=== PATIENT | male | born 1990 | race Caucasian/White ===

== ENCOUNTER → 2020-09-15 12:28 | Outpatient (CLI) | payer OTHER, SELFPAY ==
--- NOTE | 2020-09-15 | DI.RAD.S_ITS ---
PROCEDURE: FL SHOULDER INJECTION MR/CT LT INDICATIONS: PAIN IN LEFT SHOULDER COMPARISON: None. TECHNIQUE: The indications, alternatives, benefits, risks, and complications of the procedure were explained to the patient. Written informed consent was obtained and placed in the chart. The shoulder was examined fluoroscopically and a site for needle placement chosen for entry into the glenohumeral joint from an anterior approach. The skin was prepped and draped in a sterile fashion, and 1% lidocaine infiltrated from skin down to joint capsule. A spinal needle was inserted into the glenohumeral joint, and a small amount of iodinated contrast media injected to confirm intra-articular placement of the needle tip. This was followed by approximately 12 mL dilute solution of a gadolinium containing MR contrast agent. The needle was removed and a dressing was applied. The patient was given postprocedural instructions and sent to the MR suite for MR imaging. FINDINGS: A single fluoroscopic spot image demonstrates intra-articular location of injected iodinated contrast. IMPRESSION: Successful fluoroscopically guided administration of dilute Gadolinium solution into the shoulder joint for MR arthrogram. Dictated by: Jan Jernigan M.D. on 09/15/2020 at 13:38 Approved by: Jan Jernigan M.D. on 09/15/2020 at 13:38
--- NOTE | 2020-09-15 | DI.MRI.S_ITS ---
PROCEDURE: MR SHOULDER LT W CON INDICATIONS: PAIN IN LEFT SHOULDER TECHNIQUE: After the administration of 12 mL of dilute intra-articular Gadolinium contrast, oblique coronal T1 and T2 spin echo with fat saturation, oblique sagittal T1 spin echo with and without fat saturation, oblique sagittal T2 fast spin echo with fat saturation, axial T1 spin echo with fat saturation through the shoulder. COMPARISON: None. FINDINGS: Image quality: Excellent. Rotator cuff: There is a small, bursal surface, low-grade, partial tear of the anterior margin of the supraspinatus tendon at the humeral insertion (series 6, image 9; series 9, image 19) The infraspinatus, and subscapularis tendons appear intact throughout. No rotator cuff muscle atrophy on sagittal images. Bones and bursae: No bone marrow contusions or fractures. Moderate acromioclavicular joint osteoarthritic degeneration. The acromion is downsloping. No os acromiale. Fluid is noted in the subacromial/subdeltoid bursa compatible with moderate bursitis. Capsule and soft tissues: The labrum and glenohumeral ligaments appear intact. The long head of the biceps tendon demonstrates normal location and morphology. The rotator interval appears normal, without fibrosis. The coracohumeral ligament is of normal thickness. The coracoacromial ligament is thickened and is causing contouring of the anterior margin of the supraspinatus tendon (series 9, images 9-11). No intra-articular bodies. IMPRESSION: 1. Small, low-grade, partial bursal surface tear of the anterior margin of the supraspinatus tendon at the humeral surgeon. 2. Thickened coracoacromial ligament possibly causing impingement. Please correlate with clinical data. 3. Moderate acromioclavicular joint osteoarthritis. 4. Moderate subacromial/subdeltoid bursitis. 5. No labral tear. Dictated by: Maryan Becerra MD, PhD on 09/15/2020 at 14:14 Approved by: Maryan Becerra MD, PhD on 09/16/2020 at 10:05
== END ==
DX: M25.512 Pain in left shoulder (principal); M75.112 Incomplete rotator cuff tear or rupture of left shoulder, not specified as traumatic; M19.012 Primary osteoarthritis, left shoulder; M75.52 Bursitis of left shoulder
CPT/HCPCS: 23350; 73222; 77002